=== PATIENT | male | born 1930 | race Caucasian/White ===

== ENCOUNTER 2017-04-20 10:15 | Emergency (ER) | payer MEDICARE, BC ==
[~2017-04-20] VITALS: Ht 162.6 cm; Wt 65.8 kg
[~2017-04-20 10:15] MED LIST: ASPI81TA31 PO
[2017-04-20] MEDS ORDERED: VITAMIN D PO (10:24)
[2017-04-20] MEDS ORDERED: VITAMIN B COMPLEX PO (10:24)
[2017-04-20] MEDS ORDERED: MULT1TAB73 PO (10:24)
[2017-04-20] MEDS ORDERED: BUSP15TA3 PO (10:24)
[2017-04-20] MEDS ORDERED: TDAP DIPH,PERTUSS,TET VAC/PF 0.5 ML DISP.SYRIN IM ONE ×2 (10:30→11:09)
--- NOTE | 2017-04-20 11:10 | NUR ---
PT WAS EVALUATED BY DR CONNER. PT WAS D/C TO HOME AFTER WOUND CARE AND DR CONNER RE-EVALUATION. D/C INSTRUCTIONS GIVEN TO THE PT AND TO HIS SON.
[2017-04-20 11:11] VITALS: BP 142/81
== END 2017-04-20 11:12 | disposition home or self-care (01) ==
LOC: ER 10:15
DX: S41.112A Laceration without foreign body of left upper arm, initial encounter (principal); Z79.899 Other long term (current) drug therapy; W18.2XXA Fall in (into) shower or empty bathtub, initial encounter; Y93.89 Activity, other specified; Y92.89 Other specified places as the place of occurrence of the external cause; Y99.8 Other external cause status
CPT/HCPCS: 90715; A4663

== ENCOUNTER 2017-04-22 13:27 | Emergency (ER) | payer MEDICARE, BC ==
[~2017-04-22] VITALS: Ht 160 cm; Wt 63.5 kg
[~2017-04-22 13:27] MED LIST changes: -ASPI81TA31 PO; +BUSP15TA3 PO; +MULT1TAB73 PO; +VITAMIN B COMPLEX PO; +VITAMIN D PO
--- NOTE | 2017-04-22 13:44 | NUR ---
Dr Mcgee at the bedside, removed dressing.
--- NOTE | 2017-04-22 13:52 | NUR ---
Dressing applied per MD order to RT FA and RUE.
[2017-04-22 13:53] VITALS: BP 112/60
--- NOTE | 2017-04-22 13:54 | NUR ---
Patient discharged to home in stable conditon. Written and verbal after care instructions given. Patient verbalizes understanding of instructions.
== END 2017-04-22 13:55 | disposition home or self-care (01) ==
LOC: ER 13:27
DX: S41.112D Laceration without foreign body of left upper arm, subsequent encounter (principal); X58.XXXD Exposure to other specified factors, subsequent encounter; Y92.89 Other specified places as the place of occurrence of the external cause; Y99.8 Other external cause status
CPT/HCPCS: 99282; A4663

== ENCOUNTER 2017-11-17 16:53 | Emergency (ER) | payer MEDICARE, BC ==
[~2017-11-17] VITALS: Ht 170.2 cm; Wt 63.5 kg
[2017-11-17] MEDS ORDERED: WELLBUTRIN (17:04)
--- NOTE | 2017-11-17 17:10 | NUR ---
Pt's family arrived and are at bedside talking with .
--- NOTE | 2017-11-17 17:11 | NUR ---
PT IS IN ROOM #1A. DR MARTÍNEZ EVALUATED THE PT.
--- NOTE | 2017-11-17 17:12 | NUR ---
Per pt's pt is only taking Wellbutrin and Vitamin D but doses are unknown.
[2017-11-17] MEDS ORDERED: IV NORMAL SALINE 500 ML BAG IV ONE (17:15)
[2017-11-17 17:31] LABS: BASOPHILS # (AUTO) 0.1 K/uL (0.0-8.0); BASOPHILS % (AUTO) 1.4 % (0.0-2.0); EOSINOPHILS # (AUTO) 0.1 K/uL (0.0-0.7); EOSINOPHILS % (AUTO) 0.9 % (0.0-7.0); HEMOGLOBIN 12.9 g/dL (12.5-16.3); LYMPHOCYTES # (AUTO) 1.9 K/uL (20.0-40.0); LYMPHOCYTES % (AUTO) 29.4 % (20.5-51.5); MEAN CORPUSCULAR HEMOGLOBIN 33.1 uug (23.8-33.4); MEAN CORPUSCULAR HGB CONC 34 g/dL (32.5-36.3); MONOCYTES # (AUTO) 0.9 K/uL (2.0-10.0); MONOCYTES % (AUTO) 13.7 % (0.0-11.0); NEUTROPHILS # (AUTO) 3.5 K/uL (1.8-8.9); NEUTROPHILS % (AUTO) 54.6 % (38.5-71.5); PLATELET COUNT (AUTO) 145 K/uL (152-348); RED BLOOD CELL COUNT(AUTO) 3.88 MIL/uL (4.06-5.63); WHITE BLOOD COUNT (AUTO) 6.5 K/uL (3.6-10.2)
[2017-11-17 17:38] LABS: CARBON DIOXIDE 21 mmol/L (21-32); CHLORIDE 97 mmol/L (98-107); CREATININE 1.4 mg/dL (0.6-1.3); GLUCOSE 99 mg/dL (74-106); POTASSIUM 4.2 mmol/L (3.5-5.1); UREA NITROGEN, BLOOD 28 mg/dL (7-18)
[2017-11-17 17:44] LABS: ALANINE AMINOTRANSFERASE 26 U/L (16-63); ALKALINE PHOSPHATASE 63 U/L (50-136); ASPARTATE AMINOTRANSFERASE 22 U/L (15-37); BILIRUBIN,DIRECT 0.1 mg/dL (0.0-0.2); BILIRUBIN,TOTAL 0.4 mg/dL (0.2-1.0); TOTAL PROTEIN, SERUM 6.6 g/dL (6.4-8.2)
[2017-11-17 17:45] LABS: ETHANOL < 3 MG/DL (0-0)
[2017-11-17] MEDS ORDERED: LEVETIRACETAM 250 MG TABLET PO ONE (17:45)
[2017-11-17 17:55] LABS: PHENYTOIN (DILANTIN) < 0.5 ug/mL (10.0-20.0)
[2017-11-17] MEDS ORDERED: LEVETIRACETAM 250 MG TABLET ONE ×2 (18:13→18:16)
[2017-11-17 18:26] LABS: *AMPHETAMINE, URINE NEGATIVE (NEGATIVE); *BARBITURATE, URINE NEGATIVE (NEGATIVE); *CANNABINOID, URINE NEGATIVE (NEGATIVE); *COCCAINE, URINE NEGATIVE (NEGATIVE); *OPIATE, URINE NEGATIVE (NEGATIVE); *PHENCYCLIDINE SCREEN,URINE NEGATIVE (NEGATIVE)
--- NOTE | 2017-11-17 18:52 | NUR ---
PT WAS RE-EVALUATED BY DR MARTÍNEZ. PT WAS D/C TO HOME. D/C INSTRUCTIONS GIVEN TO THE PT AND TO HIS FAMILY.
[2017-11-17 18:54] VITALS: BP 133/65
== END 2017-11-17 18:55 | disposition home or self-care (01) ==
LOC: ER 16:54
DX: R56.9 Unspecified convulsions (principal); Z79.899 Other long term (current) drug therapy
CPT/HCPCS: 36415; 70450; 71045; 80307; 83605; 85025; 85730; 87040; 93005; A4663; G0480; J7030

== ENCOUNTER 2017-11-19 10:49 | Emergency (ER) | payer MEDICARE, BC ==
[~2017-11-19] VITALS: Ht 170.2 cm; Wt 63.5 kg
[~2017-11-19 10:49] MED LIST changes: -BUSP15TA3 PO; -MULT1TAB73 PO; -VITAMIN B COMPLEX PO; +WELLBUTRIN
--- NOTE | 2017-11-19 11:00 | NUR ---
DR WILSON AT THE BEDSIDE FOR EVAL AND EXAM.
[2017-11-19] MEDS ORDERED: CEFTRIAXONE 1 G in IV DEXTROSE 5% 50 ML IV ONE (11:15)
[2017-11-19 11:16] LABS: BASOPHILS # (AUTO) 0.1 K/uL (0.0-8.0); BASOPHILS % (AUTO) 1.5 % (0.0-2.0); EOSINOPHILS % (AUTO) 0.6 % (0.0-7.0); HEMOGLOBIN 13.4 g/dL (12.5-16.3); LYMPHOCYTES % (AUTO) 16.1 % (20.5-51.5); MEAN CORPUSCULAR HEMOGLOBIN 33.4 uug (23.8-33.4); MEAN CORPUSCULAR HGB CONC 34 g/dL (32.5-36.3); MEAN CORPUSCULAR VOLUME 97.1 fL (73.0-96.2); MONOCYTES # (AUTO) 0.9 K/uL (2.0-10.0); MONOCYTES % (AUTO) 13.7 % (0.0-11.0); NEUTROPHILS # (AUTO) 4.4 K/uL (1.8-8.9); NEUTROPHILS % (AUTO) 68.1 % (38.5-71.5); PLATELET COUNT (AUTO) 141 K/uL (152-348); RED BLOOD CELL COUNT(AUTO) 4.02 MIL/uL (4.06-5.63); WHITE BLOOD COUNT (AUTO) 6.4 K/uL (3.6-10.2)
[2017-11-19] MEDS ORDERED: CEFTRIAXONE 1 G VIAL ONE (11:16)
[2017-11-19 11:25] LABS: CARBON DIOXIDE 26 mmol/L (21-32); CHLORIDE 101 mmol/L (98-107); CREATININE 1.3 mg/dL (0.6-1.3); GLUCOSE 72 mg/dL (74-106); POTASSIUM 3.9 mmol/L (3.5-5.1); UREA NITROGEN, BLOOD 27 mg/dL (7-18)
[2017-11-19 11:30] LABS: ALANINE AMINOTRANSFERASE 26 U/L (16-63); ALKALINE PHOSPHATASE 70 U/L (50-136); ASPARTATE AMINOTRANSFERASE 24 U/L (15-37); BILIRUBIN,DIRECT 0.2 mg/dL (0.0-0.2); BILIRUBIN,TOTAL 0.5 mg/dL (0.2-1.0); TOTAL PROTEIN, SERUM 6.9 g/dL (6.4-8.2)
--- NOTE | 2017-11-19 12:16 | NUR ---
IV removed. Catheter intact and site benign. Pressure and 4x4 gauze applied to site. No bleeding noted.
[2017-11-19 12:20] VITALS: BP 129/70
--- NOTE | 2017-11-19 12:21 | NUR ---
Patient discharged to home in stable conditon. Written and verbal after care instructions given. Patient verbalizes understanding of instructions. pt left ER accompained by son.
== END 2017-11-19 12:22 | disposition home or self-care (01) ==
LOC: ER 10:49
DX: B96.89 Other specified bacterial agents as the cause of diseases classified elsewhere (principal); Z79.899 Other long term (current) drug therapy
CPT/HCPCS: 36415; 71045; 83605; 85025; 85730; 87040; A4663; J0696; J3490